=== PATIENT | male | born 1950 ===

== ENCOUNTER 2022-10-22 15:38 | Emergency (ER) | payer OTHER, MEDICAID, SELFPAY ==
--- NOTE | ~2022-10-22 | XR_ITS ---
EXAMINATION: XR HIP, LEFT CLINICAL INFORMATION: Pain COMPARISON: None available. TECHNIQUE: Two views of the left hip and one view of the pelvis. FINDINGS: Bone alignment is normal. No fracture or dislocation. Mild bilateral hip osteoarthritis with joint space narrowing and osteophyte formation. Sacroiliac joints and pubic symphysis are normal. Proliferative bone reaction of both iliac crests. Soft tissues are otherwise normal. XR/XR hip LT w PEL1V IMPRESSION: Mild bilateral hip osteoarthritis.
--- NOTE | ~2022-10-22 | XR_ITS ---
EXAMINATION: XR LUMBOSACRAL SPINE CLINICAL INFORMATION: Low back pain COMPARISON: None available. TECHNIQUE: Three views of the lumbosacral spine. FINDINGS: Mild curvature of the lower lumbar sacral spine to the left. Bone alignment is otherwise normal. No fracture or dislocation. Degenerative spondylosis at L2-L3 and L3-L4. Normal disc spaces. Lower lumbar spine facet arthritis. Atherosclerotic disease. XR/XR lumbar spine 2-3V IMPRESSION: Degenerative changes.
[2022-10-22 15:52] VITALS: BP 132/63; PULSE 116; RESP 18; TEMP 36.4; O2SAT 97; BMI 29.3
--- NOTE | 2022-10-22 15:53 | ED_ITS ---
HPI - General Adult General Chief complaint: Back Pain/Injury Stated complaint: lower back pain Time Seen by Provider: 10/22/22 17:26 Source: patient Mode of arrival: ambulatory Limitations: no limitations History of Present Illness HPI narrative: Patient is a 72-year-old male with history diabetes presenting to the emergency department with left lower back and hip pain which began today. He denies any falls or other trauma. He denies any heavy lifting. He states that he is from the [place] and is visiting [place] local [employer]. He denies any dysuria, hematuria or other urinary symptoms. Denies radiation of pain to lower extremities. Denies any numbness or tingling to lower extremities. He denies recent fevers. He denies any saddle anesthesia or bowel or bladder incontinence. He used an Aleve earlier today for his symptoms. MD complaint: Back pain Onset (ago): hour(s) Location: back Radiation: non-radiation Severity: severe Quality: aching Pain Consistency: constant Relieving factors: none Associated symptoms: denies other symptoms Treatments prior to arrival: NSAID Related Data Previous Rx's Medication Instructions Recorded lidocaine 5 % topical patch 1 patch topical DAILY #15 ea 10/22/22 Allergies Allergy/AdvReac Type Severity Reaction Status Date / Time Penicillins [PENICILLINS] Allergy Unknown N/A Unverified 11/27/19 18:07 Review of Systems Review of Systems: As per HPI. Yes all other systems are reviewed and are negative Constitutional: Constitutional: Reports as per HPI [facility] Social History Social History Advance Directives: No Advance Directives Information Provided: Yes Physical Exam ED Vital Signs: Vital Signs - 24 hr 10/22/22 15:52 10/22/22 17:19 Temperature 97.6 F 98 F Pulse Rate 116 H 100 Respiratory Rate 18 18 Blood Pressure 132/63 134/80 Pulse Oximetry 97 98 Oxygen Delivery Method Room Air Room Air BMI result Body Mass Index 29.3 Vital signs have been reviewed and appear to be correct. Blood pressure normal. Heart rate initially tachycardic, now normal. Respiratory rate normal. Temperature normal. Oxygen saturation normal. Const General: cooperative, healthy appearing and no acute distress Orientation/consciousness: oriented to person, oriented to place, oriented to time and patient oriented x3 Limitations: no limitations HENMT Head: Yes normocephalic and Yes atraumatic Ears: external ears normal General nose exam: Normal external nose present Face and sinus: Yes face symmetric Mouth: oropharynx normal and moist mucous membranes Throat: Yes uvula midline Eyes Pupils: Equal, round and reactive pupils present Neck Neck: Yes normal visual inspection, Yes no meningeal signs and Yes supple Resp Effort & Inspection: normal respiratory effort and able to speak in complete sentences Auscultation: clear to auscultation bilaterally Cardio Rate: regular rate Rhythm: regular rhythm Heart sounds: S1 normal heart sound present and S2 normal heart sound present GI Palpation (GI): Soft to palpation and nontender Auscultation: normoactive bowel sounds General: Yes no CVA tenderness Back/Spine/Pelvis Back: no CVA tenderness Cervical Spine: normal cervical lordosis, cervical ROM normal, No Cervical spine tenderness and No step off deformity Thoracic/Lumbar Spine: thoracic and lumbar spine normal to inspection, thoraco- lumbar ROM normal, straight leg raise negative bilaterally, No thoracic spinal tenderness and No lumbar spinal tenderness Pelvis: no pain with anterior-posterior compression and no pain with lateral compression Skin General skin exam: elasticity normal and turgor normal Neuro General: oriented to person, oriented to place, oriented to time, patient oriented x3, gait normal, tone normal, moves all extremities, Normal light touch and pain sensation, no meningeal signs, no focal motor deficits, CN's II-XI intact bilaterally and deep tendon reflexes 2+ bilaterally Cranial nerves: Yes Equal, round and reactive pupils present Cognition (Neuro): normal cognition Gait exam (Neuro): Normal gait present Motor exam (neuro): 5/5 motor strength present throughout Sensory Exam: Normal double simultaneous stimulation for sensation Extrem General: Yes full ROM, Yes no pedal edema and Yes no calf tenderness Psych Mental Status: mental status grossly normal Affect: normal affect Thought process: Normal thought process present Course Course Course Narrative: RME: 72 yold male presents to the ED for left side back/hip pain worse on movement from today. patient states no abdominal/ symptoms. patient states no recent fracture. xray and UA ordered Medical Decision Making Medical Decision Making MDM Narrative: Patient is a 72-year-old male with history diabetes presenting to the emergency department with left lower back and hip pain which began today. On exam patient is awake, A+Ox3, VS WNL, afebrile, normal neurological exam without focal deficits, no midline spinal tenderness, no CVA tenderness, negative straight leg raise bilaterally, DTRs 2+ throughout. Given reported symptoms and physical exam findings, initial differential includes lumbar strain, degenerative disease,. X-ray notable for . My interpretation is in agreement with the radiologist's interpretation. Low suspicion for/unlikely . *Considered admission if any of the DDX would qualify pt for admission *Consider CC *U/S-considered CT?, other tests considered Lab Data Labs: Lab Results 10/22/22 Range/Units 17:14 Urine Color Yellow Urine Appearance Clear Urine pH 6.0 (5.0-9.0) Ur Specific [place] >= 1.030 H (1.005-1.025) Urine Protein 30 (1+) H (Neg-Trace) mg/dL Urine Glucose (UA) 500 H (Negative) mg/dL Urine Ketones Trace (Negative) mg/dL Urine Blood Negative (Negative) Urine Nitrite Negative (Negative) Ur Leukocyte Esterase Negative (Negative) Urine RBC 0-2 (0-2) /HPF Urine WBC 0-5 (0-5) /HPF Ur Squamous Epith Cells 0-2 (0-2) /HPF Urine Bacteria None Seen (None Seen) Hyaline Casts 6-10 (0-2) /LPF Discharge Plan Discharge Clinical Impression: Lumbar spondylosis, Hip osteoarthritis Patient Disposition: Home, Self-Care Instructions: Osteoarthritis (DC) Additional Instructions: Usted fue evaluado en el departamento de emergencias hoy por dolor de betha. More radiograf?as mostraron artritis en riggs columna lumbar y caderas. Le recomendamos que use ibuprofeno o Tylenol seg?n las instrucciones del paquete cada 6 horas seg?n sea necesario para el dolor. Si es necesario, puede alternar estos medicamentos para que tome un medicamento cada 3 horas. Por ejemplo, al mediod?a tere ibuprofeno, luego a las 3:00 p. m. tere Tylenol, luego a las 6:00 p.m. tere ibuprofeno. Le moya recetado parches de lidoca?na t?pica al 5% que puede usar hasta 12 horas en un per?odo de 24 horas. No aplique calor directamente sobre los parches. Programe suzette emir de seguimiento con riggs m?dico de atenci?n primaria esta semana para suzetet evaluaci?n m?s detallada de more s?ntomas. Regrese al departamento de emergencias si experimenta un empeoramiento del dolor de espalda, dificultad para caminar, fiebre, entumecimiento, hormigueo, incontinencia, entumecimiento u hormigueo en la roberth, o cualquier otro s?ntoma preocupante. Prescriptions: New lidocaine 5 % adhesive patch,medicated 1 patch topical DAILY Qty: 15 0RF Rx Instructions: leave on most painful area for up to 12 hrs Interventions: ED Discharge Assessment Last Done: 10/22/22 18:10 Discharge Date/Time: 10/22/22 18:10
[2022-10-22 17:19] VITALS: BP 134/80; PULSE 100; RESP 18; TEMP 36.6; O2SAT 98
[2022-10-22 17:20] LABS: Appearance Urine Clear; Color Urine Yellow; Glucose Urine UA 500 mg/dL (Negative); Leukocyte Esterase Urine Negative (Negative); Nitrite Urine Negative (Negative); Specific Gravity - Urine >= 1.030 (1.005-1.025); UMIC TRIGGER UACC YES; Urine Blood Negative (Negative); Urine Ketones Trace mg/dL (Negative); Urine Protein 30 (1+) mg/dL (Neg-Trace)
[2022-10-22 17:37] LABS: Bacteria Urine None Seen (None Seen); RBC Urine 0-2 /HPF (0-2); Squamous Epithelial Cell Urine 0-2 /HPF (0-2); WBC Urine 0-5 /HPF (0-5)
== END 2022-10-22 18:10 | disposition home or self-care (01) ==
PROVIDERS: Physician Assistant; Emergency Provider Internal Medicine
DX: M47.896 Other spondylosis, lumbar region (principal); M16.12 Unilateral primary osteoarthritis, left hip; Z79.899 Other long term (current) drug therapy
CPT/HCPCS: 72100; 73502; 81001; 99283